=== PATIENT | female | born 1975 | race American Indian/Alaskan Native ===

== ENCOUNTER 2016-06-29 12:17 | Emergency (ER) | payer MEDICAID ==
[2016-06-29 12:48] VITALS: BP 118/72
--- NOTE | 2016-06-29 16:19 | Emergency Department Report ---
Entered by NIGEL RHODES, acting as scribe for RISA GONZALEZ PA. Chief Complaint: Skin Rash Stated Complaint: SKIN RASH Time Seen by Provider: 06/29/16 16:02 - HPI History of Present Illness: 41 y/o female presents complaining of psoriasis flareup, patient has had the symptoms for 18 years. Associated symptoms of burning sensation and itching sensation in the affected areas, but she denies nausea, vomiting, fever, chest pain, and abdominal pain. No other medical complaints. Patient would like a referral for paint specialist. - ROS Review of Systems: Constitutional: Denies chills, fever, diaphoresis, malaise, weakness Eyes: Denies eye pain ENT: Denies ear pain, throat pain, congestion Respiratory: Denies cough, shortness of breath, wheezing Cardiovascular: Denies chest pain, palpitations Endocrine: No symptoms reported GI: Denies abdominal pain, nausea, vomiting, diarrhea Musculoskeletal: Denies back pain, joint swelling, arthralgia, myalgia Skin: Complains of rash, Denies lesions, pruritus Neurological: Denies headache, weakness, numbness, paresthesias - Exam Vital Signs: Vital Signs 06/29/16 12:44 Temperature 98.9 F Pulse Rate 94 H Respiratory 18 Rate Blood Pressure 118/72 O2 Sat by Pulse 99 Oximetry Physical Exam: GENERAL: The patient is well-developed and well-nourished. Patient is in NAD. HEAD: Normocephalic. Atraumatic. EYES: PERRL. THROAT: No erythema, swelling or exudates. NECK: Supple, nontender, without lymphadenopathy. No meningitic signs are noted. CHEST/LUNGS: Clear to auscultation throughout. HEART/CARDIOVASCULAR: Regular rate and rhythm. No murmurs, rubs or gallops. ABDOMEN: Abdomen is soft, nontender. Bowel sounds normoactive. No guarding or rebound tenderness. EXTREMITIES: Peripheral pulses intact. Capillary refill less than 2 seconds. NEURO: Alert and oriented x 3. Normal gait. SKIN: scattered scaly, circular rash, consistent with plaque psoriasis MSE screening note: Focused history and physical exam performed. Due to findings the following was ordered: ED Medical Decision Making - Lab Data Vital Signs 06/29/16 12:44 Temperature 98.9 F Pulse Rate 94 H Respiratory 18 Rate Blood Pressure 118/72 O2 Sat by Pulse 99 Oximetry - Medical Decision Making 41 y/o female presents complaining of plaque psoriasis flareup, patient has had the symptoms for 18 years. Patient is in no acute distress at this time. She will be discharged home and is encouraged to follow up with a primary care provider. She is encouraged to return to the emergency room for any worsening symptoms. ED Disposition for MSE Clinical Impression: Psoriasis Disposition: DISCHARGED TO HOME OR SELFCARE Is pt being admited?: No Does the pt Need Aspirin: No Condition: Stable Instructions: Psoriasis (ED) Additional Instructions: Follow-up with primary care provider and paint specialist. Return to the emergency department if symptoms worsen. Prescriptions: Triamcinolone 0.1% [Kenalog 0.1% CREAM] 1 applic TP BID #1 tube Referrals: PRIMARY CARE, [Primary Care Provider] - 3-5 Days ARSH YOON MD [Staff Physician] - 3-5 Days Forms: Work/School Release Form(ED), Accompanied Note Time of Disposition: 16:13 This documentation as recorded by the CARMELO lin GRACE,accurately reflects the service I personally performed and the decisions made by CARLOS gabriel NATASHA, PA.
== END 2016-06-29 16:21 | disposition home or self-care (01) ==
LOC: ED 12:17
DX: L40.9 Psoriasis, unspecified (principal)
CPT/HCPCS: 99282